=== PATIENT | female | born 1970 | race Caucasian/White ===

== ENCOUNTER 2017-06-22 01:29 | Inpatient (IN) | payer MEDICAID ==
[~2017-06-22] VITALS: Ht 157.5 cm; Wt 61.0 kg
[~2017-06-22 01:29] MED LIST: DENIES; PREN-15 PO
[2017-06-22] MEDS ORDERED: SOD CHLORIDE 0.9% 500 ML IV STA (03:10)
[2017-06-22] MEDS ORDERED: ONDANSETRON 4 MG INJ IV STA (03:10)
[2017-06-22] MEDS ORDERED: morphine 4 MG/ML VIAL IV STA (03:10)
--- NOTE | 2017-06-22 03:57 | RADRPT ---
PROCEDURE: Chest. CLINICAL INDICATION: Chest pain. TECHNIQUE: Single frontal view of the chest was obtained. COMPARISON: None. FINDINGS: The cardiac silhouette is within normal limits. The aortic arch is unremarkable. There is no focal consolidation, vascular congestion or pleural effusion. There is no pneumothorax. IMPRESSION: No evidence for active cardiopulmonary disease. .Orion Baltazar MD, MD Date Time Electronically viewed and signed by .Orion Baltazar MD, on 06/22/2017 03:57 .T/
[2017-06-22 04:51] LABS: ADD UMIC YES; UR ASCORBIC ACID NEGATIVE (NEGATIVE); UR BACTERIA FEW /HPF (NONE SEEN); UR BILIRUBIN (Dip) NEGATIVE (NEGATIVE); UR BLOOD (Dip) NEGATIVE (NEGATIVE); UR CLARITY CLOUDY (CLEAR); UR COLOR YELLOW (YELLOW); UR GLUCOSE (Dip) NEGATIVE (NEGATIVE); UR KETONES (Dip) TRACE mg/dL (NEGATIVE); UR LEUKOCYTE ESTERASE (Dip) NEGATIVE Leu/ul (NEGATIVE); UR NITRITE (Dip) NEGATIVE (NEGATIVE); UR RBC 2 /HPF (0-5); UR SPECIFIC GRAVITY (Dip) 1.021 (1.003-1.030); UR SQUAMOUS EPITHELIAL CELL MANY /HPF (FEW); UR TOTAL PROTEIN (Dip) 1+ mg/dl (NEGATIVE); UR UROBILINOGEN (Dip) NEGATIVE (NEGATIVE)
--- NOTE | 2017-06-22 04:53 | RADRPT ---
PROCEDURE: CT Abdomen and pelvis without contrast. CLINICAL INDICATION: Abdominal pain. TECHNIQUE: CT scan of the abdomen and pelvis was performed on a multi-detector high-resolution CT scanner. Contiguous axial images were obtained from the lung bases to the ischial tuberosities wit hout intravenous contrast. Coronal and sagittal reformatted images were also obtained. Images were reviewed on the PACS workstation. One or more of the following dose reduction techniques were used: - Automated exposure control. - Adjustment of the mA and/or kV according to patient size. - Use of iterative reconstruction technique. Exam CTD/vol = 8.09 mGy. Total exam DLP = 475.98 mGy-cm. COMPARISON: None. FINDINGS: Evaluation of the lung bases demonstrates mild bibasilar atelectasis. There is a moderate-sized hia low hernia. Abdomen: The liver is normal in size. There is no focal mass or dilatation of the biliary tree. T he gallbladder is not distended. A gallstone is identified. The spleen, pancreas and bilateral adren al glands are within normal limits. Bilateral kidneys are normal in size with no contour deforming mass identified. There is no radiopaque renal or ureteral calculus identified. There is no hydrone phrosis or hydroureter. There is no retroperitoneal adenopathy. The abdominal aorta is of normal c aliber. There is no abnormal bowel wall thickening or distension. There is no bowel obstruction or free air . A normal appendix is partially visualized. There is no diverticulosis or diverticulitis. There is no ascites. Pelvis: The bladder is unremarkable. The uterus and adnexa are within normal limits. There is no significant pelvic adenopathy or free fluid. Evaluation of the osseous structures demonstrates no suspicious lytic or blastic lesion. IMPRESSION: Moderate sized hiatal hernia. Cholelithiasis. Mild bibasilar atelectasis. Otherwise no acute abnormality identified within the abdomen and pelvis. .Orion Baltazar MD, MD Date Time Electronically viewed and signed by .Orion Baltazar MD, MD on 06/22/2017 04:53 .T/
[2017-06-22 04:54] LABS: BILIRUBIN,INDIRECT 0.9 mg/dl (0-1.1); BILIRUBIN,TOTAL 0.9 mg/dl (0.2-1.3); CALCIUM 9.4 mg/dl (8.4-10.2); CREATININE 0.6 mg/dl (0.44-1.00); POTASSIUM 3.4 mmol/L (3.5-5.1)
[2017-06-22 05:57] LABS: ABNORMAL IP MESSAGE 1; EOSINOPHILS % 0.9 % (0.0-7.0); HEMATOCRIT 17.5 % (37.0-47.0); LYMPHOCYTES % 28.4 % (15.0-51.0); MEAN CORPUSCULAR HEMOGLOBIN 16.1 pg (29.0-33.0); MEAN CORPUSCULAR HGB CONC 24.6 g/dl (32.0-37.0); MEAN CORPUSCULAR VOLUME 65.5 fl (82.0-101.0); MEAN PLATELET VOLUME 10.1 fl (7.4-10.4); MONOCYTE # 0.4 10^3/ul (0.3-0.9); MONOCYTES % 11.1 % (0.0-11.0); NEUTROPHILS % 59.3 % (39.0-77.0); PLATELET COUNT 211 10^3/UL (140-415); RED BLOOD COUNT 2.67 10^6/ul (4.20-5.40); WHITE BLOOD COUNT 3.4 10^3/ul (4.8-10.8)
--- NOTE | 2017-06-22 06:01 | ERD ---
ER Documentation Chief Complaint Date/Time DATE: 06/22/17 TIME: 06:00 Chief Complaint mid abd pain x 5 days, fever, vomiting HPI 47-year-old gentleman abdominal findings of fever and vomiting. Vomiting nonbilious. Pain is mild to moderate intensity. 2-3 episodes of vomiting per day. No fevers no chills. No other current complaints. ROS All systems reviewed and are negative except as per history of present illness. Medications Home Meds Reported Medications Vit/Fe Fumarate/Fa (Prenafirst Tablet) 1 Tab Tablet, PO DAILY 03/14/12 [Denies] No Conflict Check 04/23/10 Allergies Allergies: Coded Allergies: Penicillins (Verified Allergy, Mild, 03/14/12) PMhx/Soc History of Surgery: No Anesthesia Reaction: No Hx Neurological Disorder: No Hx Respiratory Disorders: No Hx Cardiac Disorders: No Hx Psychiatric Problems: No Hx Miscellaneous Medical Probl: Yes (ETOH,Anemia,Thrombocytopenia) Hx Alcohol Use: Yes (Quit) Hx Substance Use: No Hx Tobacco Use: No Smoking Status: Never smoker Physical Exam Vitals Vital Signs Date Time Temp Pulse Resp B/P Pulse Ox O2 Delivery O2 Flow Rate FiO2 06/22/17 01:35 99.1 90 20 107/55 100 Physical Exam Const: [] Head: Atraumatic Eyes: Normal Conjunctiva ENT: Normal External Ears, Nose and Mouth. Neck: Full range of motion..~ No meningismus. Resp: Clear to auscultation bilaterally Cardio: Regular rate and rhythm, no murmurs Abd: Soft, non tender, non distended. Normal bowel sounds Skin: No petechiae or rashes Back: No midline or flank tenderness Ext: No cyanosis, or edema Neur: Awake and alert Psych: Normal Mood and Affect Result Diagram: 06/22/17 0410 Results 24 hrs Laboratory Tests Test 06/22/17 04:10 06/22/17 05:30 Urine Color YELLOW Urine Clarity CLOUDY Urine pH 5.0 Urine Specific [place] 1.021 Urine Ketones TRACEmg/dL Urine Nitrite NEGATIVEmg/dL Urine Bilirubin NEGATIVEmg/dL Urine Urobilinogen NEGATIVEmg/dL Urine Leukocyte Esterase NEGATIVELeu/ul Urine Microscopic RBC 2/HPF Urine Microscopic WBC 2/HPF Urine Squamous Epithelial Cells MANY/HPF Urine Bacteria FEW/HPF Urine Hemoglobin NEGATIVEmg/dL Urine Glucose NEGATIVEmg/dL Urine Total Protein 1+mg/dl Sodium Level 143mmol/L Potassium Level 3.4mmol/L Chloride Level 97mmol/L Carbon Dioxide Level 29mmol/L Anion Gap 20 Blood Urea Nitrogen 9mg/dl Creatinine 0.60mg/dl Glucose Level 98mg/dl Calcium Level 9.4mg/dl Total Bilirubin 0.9mg/dl Direct Bilirubin 0.00mg/dl Indirect Bilirubin 0.9mg/dl Aspartate Amino Transf (AST/SGOT) 36IU/L Alanine Aminotransferase (ALT/SGPT) 47IU/L Alkaline Phosphatase 80IU/L Total Protein 8.0g/dl Albumin 4.0g/dl Globulin 4.00g/dl Albumin/Globulin Ratio 1.00 Lipase 45U/L White Blood Count Pending Red Blood Count Pending Hemoglobin Pending Hematocrit Pending Mean Corpuscular Volume Pending Mean Corpuscular Hemoglobin Pending Mean Corpuscular Hemoglobin Concent Pending Red Cell Distribution Width Pending Platelet Count Pending Mean Platelet Volume Pending Current Medications Medications (Trade) Dose Ordered Sig/Katelynn Route PRN Reason Start Time Stop Time Status Last Admin Dose Admin Sodium Chloride (NS) 500 ml @ 500 mls/hr Q1H STAT IV 06/22/17 03:10 06/22/17 04:09 DC 06/22/17 03:51 Morphine Sulfate (morphine) 4 mg ONCE STAT IV 06/22/17 03:10 06/22/17 03:12 DC 06/22/17 03:47 Ondansetron HCl (Zofran Inj) 4 mg ONCE STAT IV 06/22/17 03:10 06/22/17 03:12 DC 06/22/17 03:47 Procedures/MDM Medical decision-makin-year-old female comes in with complaints of vomiting. CT scan exam consistent with cholelithiasis. At this point clinically stable for outpatient management. Patient told to follow-up in 8 hours for serial abdominal exams which he agrees. Departure Diagnosis: Primary Impression: Abdominal pain Abdominal location: generalized Qualified Code: R10.84 - Generalized abdominal pain Condition: Stable DILLANCOLE VALELew Jun 22, 2017 06:01
[2017-06-22] MEDS ORDERED: HYDR-902 PO (06:02)
[2017-06-22] MEDS ORDERED: ONDA4TAB14 PO (06:02)
[2017-06-22 06:23] LABS: POSITIVE DIFF @See below
[2017-06-22 06:26] LABS: HEMOGLOBIN 4.3 g/dl (12.0-16.0)
[2017-06-22] MEDS ORDERED: SOD CHLORIDE 0.9% 250 ML IV ONE (06:35)
--- NOTE | 2017-06-22 07:16 | QN ---
Documentation Comment Patient was found to have a hemoglobin of 4.3. The patient will need transfusion of 4 units of packed red blood cells. Her anemia is likely from dysfunctional uterine bleeding. I spoke with Dr. Briggs from the panel team to admit the patient to a medical surgical bed. She is not I doubt or ectopic . Critical Care: Time: 35 minutes excluding all billable procedures. Treatments/Evaluations: Close monitoring and treatment of unstable vital signs, cardiorespiratory, and neurologic status, while maintaining tight balance of fluid, respiratory, and cardiac interventions. CARLA MOTT MD Jun 22, 2017 07:16
[2017-06-22] MEDS ORDERED: ONDANSETRON 4 MG INJ IV PRN ×2 (07:30→10:00)
[2017-06-22] MEDS ORDERED: ACETAMINOPHEN 325 MG TAB PO PRN ×2 (07:30→10:00)
[2017-06-22 08:45] VITALS: TEMP 98.3
[2017-06-22 08:49] LABS: ANISOCYTOSIS 3+ (0-0); BASOPHILS % (M) 1 % (0-2); EOSINOPHILS % (M) 3 % (0-7); GIANT THROMBO% (M) 4 % (0-0); HYPOCHROMASIA 2+ (0-0); METAMYELOCYTES %M 3 % (0-0); MICROCYTOSIS 3+ (0-0); MONOCYTES % (M) 1 % (0-11); MYELOCYTES % (M) 1 % (0.0-0.0); PLATELET ESTIMATE NORMAL; POIKILOCYTOSIS 1+ (0-0); POLYCHROMASIA 1+ (0-0); TEAR DROP CELLS 1+ (0-0)
[2017-06-22 10:00] VITALS: BP 96/52; PULSE 68; RESP 18
[2017-06-22] MEDS ORDERED: ACETAMINOPHEN 650 MG SUPP PR PRN (10:00)
[2017-06-22] MEDS ORDERED: DOCUSATE SODIUM 100 MG CAP PO PRN (10:00)
[2017-06-22] MEDS ORDERED: morphine 2 MG INJ IV PRN (10:00)
[2017-06-22] MEDS ORDERED: NACL 0.9% 3 ML SYG IV SCH (10:00)
--- NOTE | 2017-06-22 10:00 | HP ---
Date/Time of Note Date/Time of Note DATE: 06/22/17 TIME: 10:00 Assessment/Plan VTE Prophylaxis VTE Prophylaxis Intervention: SCD's Assessment/Plan Assessment/Plan 1. Acute on chronic anemia. Likely iron deficiency versus other. -Admit as inpatient, monitor H&H closely and transfuse as indicated. Of note, 4 units of PRBC has been ordered. -Obtain iron panel, ferritin, folate, vitamin B12 and treat accordingly. -Obtain tumor markers, TSH. -Consider hematology evaluation. -Obtain stool OB and will consider GI if indicated. -We will also obtain vaginal ultrasound to rule out any possible fibroids causing anemia. 2. Hypokalemia, mild. We will replete and monitor. 3. History of EtOH abuse. -We will also obtain liver panel. Plan: Patient will be started on a diet. Will consider hematology evaluation. Transfuse as indicated and monitor H&H closely. Follow-up with labs that have been ordered. Rest of the management depend on clinical course, and further studies. Approximately 60 minutes was spent on this history and physical. Case discussed with Dr. Interiano. HPI/ROS Admit Date/Time Admit Date/Time Hx of Present Illness This is a 47-year-old female with a past medical history of EtOH abuse who is a sober for the past month 1 month, chronic anemia with multiple blood transfusion in the past, epistaxis, who presented to the emergency room with complaints of generalized weakness, and malaise for the past few weeks. Patient does not have PCP. Patient denied any hematuria, hematemesis, hematochezia, melena or excessive vaginal bleed. Her LMP was 5 months ago. Initial workup showed a low hemoglobin 4.3, hematocrit 17.5, sub-normal MCV, MCH , WBC 3.4. UA negative for any RBC loss. 4 units packed red blood cells was ordered from emergency room and was admitted for further evaluation. ROS A 12 point review of system was assessed and is negative other than what is mentioned in HPI. PMH/Family/Social Past Medical History See HPI Past Surgical History See HPI Social History Former EtOH abuse, quit 1 month ago. Denied history of smoking or illicit drug use. Smoking Status: Never smoker Exam/Review of Systems Vital Signs Vitals Vital Signs Date Time Temp Pulse Resp B/P Pulse Ox O2 Delivery O2 Flow Rate FiO2 06/22/17 08:45 98.3 71 16 105/69 100 Room Air Exam Exam General: Well developed,adequately built, not in any acute distress . HEENT: Normocephalic, Atraumatic, No laceration or hematoma; Eyes: PEERL, Conjunctiva clear, mildly icteric sclera. Neck: Supple without any lymphadenopathy, nontender, no JVD, no carotid bruits, trachea midline, no thyromegaly Cardiac: S1, S2 auscultated, regular rhythm and rate, no mumurs or gallop Pulmonary: Normal respiratory effort. Chest clear to auscultation bilaterally, no adventitious breath sounds GI: Abdomen normal to inspection. Soft, non tender, non- distended, no masses, no rebound tenderness or guarding. Bowel sounds active on all four quadrants Genitourinary: Deferred Extremities: No cyanosis, clubbing, or edema. Pulses [2+] bilaterally. Full ROM on all four extremities. No focal weakness appreciated. Neurologic: Alert to person, place, time, and situation. Affect appropriate, intact sensation. Skin: Pale. Clean,dry, and intact. No ecchymosis, no rashes, or lesions Labs Result Diagram: 06/22/17 0530 06/22/17 0410 Medications Medications Current Medications Ondansetron HCl (Zofran Inj) 4 mg Q6H PRN IV NAUSEA AND/OR VOMITING; Start at 10:00; Status UNV Acetaminophen (Tylenol Tab) 650 mg Q6H PRN PO PAIN LEVEL 1-3 OR FEVER; Start at 10:00; Status UNV Acetaminophen (Tylenol Supp) 650 mg Q6H PRN [place] PAIN LEVEL 1-3 OR FEVER; Start 06/22/17 at 10:00; Status UNV Morphine Sulfate (morphine) 2 mg Q4H PRN IV SEVERE PAIN LEVEL 7-10; Start 06/22 at 10:00; Status UNV Docusate Sodium (Colace) 100 mg Q12H PRN PO CONSTIPATION; Start 06/22/17 at 10: 00; Status UNV Pantoprazole (Protonix Iv) 40 mg DAILY@06 IV ; Start 06/23/17 at 06:00; Status UNV IVIS LAKE NP Jun 22, 2017 10:00
[2017-06-22 11:19] LABS: IRON 21 ug/dl (35-150)
[2017-06-22 11:28] LABS: TOTAL IRON BINDING CAPACITY 507 ug/dl (241-421)
[2017-06-22 11:46] LABS: CANCER ANTIGEN 125 8.2 U/ml (0.0-35.0); CARCINOEMBRYONIC ANTIGEN 1.6 ng/ml (0.0-5.0)
[2017-06-22 11:50] LABS: CANCER ANTIGEN 19-9 3.3 U/ml (0.0-37.0)
[2017-06-22 11:57] LABS: FERRITIN 2.9 ng/ml (6.2-137.0)
[2017-06-22 12:00] VITALS: Ht 157.5 cm; Wt 61.0 kg
[2017-06-22 12:34] LABS: FOLATE > 20.0 ng/ml (2.8-20.0)
--- NOTE | 2017-06-22 12:59 | CONS ---
Date/Time of Note Date/Time of Note DATE: 06/22/17 TIME: 12:58 Consultation Date/Type/Reason Admit Date/Time Date of Consultation: Jun 22, 2017 Type of Consultation: hemeonc Reason for Consultation anemia Referring Provider: IVIS LAKE NP Social History Smoking Status: Never smoker Exam/Review of Systems Vital Signs Vitals Vital Signs Date Time Temp Pulse Resp B/P Pulse Ox O2 Delivery O2 Flow Rate FiO2 06/22/17 08:45 98.3 71 16 105/69 100 Room Air Results Result Diagram: 06/22/17 0530 06/22/17 0410 Results 24 hrs Laboratory Tests Test 06/22/17 04:10 06/22/17 05:30 Urine Color YELLOW Urine Clarity CLOUDY A Urine pH 5.0 Urine Specific [place] 1.021 Urine Ketones TRACE A Urine Nitrite NEGATIVE Urine Bilirubin NEGATIVE Urine Urobilinogen NEGATIVE Urine Leukocyte Esterase NEGATIVE Urine Microscopic RBC 2 Urine Microscopic WBC 2 Urine Squamous Epithelial Cells MANY A Urine Bacteria FEW A Urine Hemoglobin NEGATIVE Urine Glucose NEGATIVE Urine Total Protein 1+ H Sodium Level 143 Potassium Level 3.4 L Chloride Level 97 Carbon Dioxide Level 29 Anion Gap 20 H Blood Urea Nitrogen 9 Creatinine 0.60 Glucose Level 98 Calcium Level 9.4 Iron Level 21 L Total Iron Binding Capacity 507 H Percent Iron Saturation 4 L Ferritin 2.9 L Total Bilirubin 0.9 Direct Bilirubin 0.00 Indirect Bilirubin 0.9 Aspartate Amino Transf (AST/SGOT) 36 Alanine Aminotransferase (ALT/SGPT) 47 Alkaline Phosphatase 80 Lactate Dehydrogenase 515 Total Protein 8.0 Albumin 4.0 Globulin 4.00 H Albumin/Globulin Ratio 1.00 Lipase 45 Alpha Fetoprotein 2.03 Carcinoembryonic Antigen 1.6 CA 19-9 Antigen 3.3 CA 125 Antigen 8.2 Vitamin B12 Level 643 Folate > 20.0 H White Blood Count 3.4 L Red Blood Count 2.67 L Hemoglobin 4.3 *L Hematocrit 17.5 L Mean Corpuscular Volume 65.5 L Mean Corpuscular Hemoglobin 16.1 L Mean Corpuscular Hemoglobin Concent 24.6 L Red Cell Distribution Width 22.0 H Platelet Count 211 Mean Platelet Volume 10.1 Neutrophils % 59.3 Segmented Neutrophils % (Manual) 68 Band Neutrophils % (Manual) 1 Lymphocytes % 28.4 Lymphocytes % (Manual) 22 Monocytes % 11.1 H Monocytes % (Manual) 1 Eosinophils % 0.9 Eosinophils % (Manual) 3 Basophils % 0.0 Basophils % (Manual) 1 Metamyelocytes % (manual) 3 H Myelocytes % (Manual) 1 H Nucleated Red Blood Cells % 0.0 Neutrophils # (Manual) 2 Band Neutrophils # 0.0 Absolute Lymphocytes (Manual) 0.7 L Lymphocytes # 1.0 Monocytes # 0.4 Absolute Monocytes (Manual) 0.0 L Eosinophils # 0.0 Basophils # 0.0 Basophils # (Manual) 0.0 Metamyelocytes # 0.1 H Myelocytes # 0.0 Nucleated Red Blood Cells # 0.0 Thrombocytosis 4 H Platelet Estimate NORMAL Polychromasia 1+ Hypochromasia 2+ Poikilocytosis 1+ Anisocytosis 3+ Microcytosis 3+ Tear Drop Cells 1+ Medications Medications Current Medications Ondansetron HCl (Zofran Inj) 4 mg Q6H PRN IV NAUSEA AND/OR VOMITING; Start at 10:00 Acetaminophen (Tylenol Tab) 650 mg Q6H PRN PO PAIN LEVEL 1-3 OR FEVER; Start at 10:00 Acetaminophen (Tylenol Supp) 650 mg Q6H PRN [place] PAIN LEVEL 1-3 OR FEVER; Start 06/22/17 at 10:00 Morphine Sulfate (morphine) 2 mg Q4H PRN IV SEVERE PAIN LEVEL 7-10; Start 06/22 at 10:00 Docusate Sodium (Colace) 100 mg Q12H PRN PO CONSTIPATION; Start 06/22/17 at 10: 00 Pantoprazole (Protonix Iv) 40 mg DAILY@06 IV ; Start 06/23/17 at 06:00 BERNADETTE HAWKINS MD Jun 22, 2017 12:58
[2017-06-22] MEDS ORDERED: BARIUM SULF 2% 450 ML BTL (BERRY SMOOTHIE) PO ONE (13:30)
[2017-06-22] MEDS ORDERED: POTASSIUM CHLORIDE (SR) 20 MEQ TAB PO STA (13:47)
[2017-06-22] MEDS: SOD FERRIC GLUC COMPLX 125 MG in SOD CHLORIDE 0.9% 100 ML IVPB SCH (15:29)
[2017-06-22 15:32] VITALS: BP 107/64; RESP 16
[2017-06-22 15:35] LABS: RETICULOCYTE COUNT % 0.8 % (0.5-1.5)
--- NOTE | 2017-06-22 15:46 | RADRPT ---
PROCEDURE: US Pelvis. CLINICAL INDICATION: Fibroids. TECHNIQUE: The pelvis was evaluated with transabdominal and transvaginal sonography in the axial a nd sagittal planes. COMPARISON: No prior study is available for comparison. FINDINGS: Uterus: 8.0 x 3.8 x 5.0 cm. Endometrium: Heterogeneous measuring 14.7 mm. Right ovary: Not visualized. Left ovary: 2.4 x 1.6 x 1.9 cm. Uterine masses: There are multiple hypoechoic masses in the uterus consistent with fibroids with the largest measuring 1.7 x 1.3 x 1.4 cm. A small Nabothian cyst is present in the cervix. Ovarian masses: The right ovary is not visualized. The left ovary has a benign 1.7 cm cyst with no internal echoes or septations. Color Doppler and pulsed Doppler sonography demonstrate normal flow t o the left ovary. Other pelvic masses: None. Free fluid: None. IMPRESSION: 1. Multiple small fibroids in the uterus. 2. Benign Nabothian cyst of the cervix. 3. Right ovary not visualized. 4. A 91.7 cm cyst in the left ovary. No further evaluation is required. 5. Heterogeneous endometrium. Follow-up ultrasound in 6 weeks is advised. 6. Otherwise unremarkable study. RPTAT: QQ .Negrito Gardiner MD, MD Date Time Electronically viewed and signed by .Negrito Gardiner MD, on 06/22/2017 15:46 .R/
[2017-06-22 15:48] LABS: HEMATOCRIT 26.4 % (37.0-47.0); HEMOGLOBIN 7.6 g/dl (12.0-16.0)
[2017-06-22 15:53] LABS: LACTATE DEHYDROGENASE 352 IU/L (313-618); URIC ACID 5.4 mg/dl (3.1-7.9)
[2017-06-22 16:56] LABS: CARCINOEMBRYONIC ANTIGEN 1.5 ng/ml (0.0-5.0)
[2017-06-22 20:16] VITALS: BP 101/56; RESP 18
[2017-06-23] VITALS (10 sets, daily range): BP systolic 90–131; BP diastolic 54–80; PULSE 50–59; RESP 14–18
[2017-06-23] MEDS ORDERED: PANTOPRAZOLE 40 MG INJ IV SCH (06:00)
[2017-06-23 06:13] LABS: ABNORMAL IP MESSAGE 1; BASOPHILS % 0.9 % (0.0-2.0); EOSINOPHILS # 0.1 10^3/ul (0.0-0.5); EOSINOPHILS % 3.3 % (0.0-7.0); HEMATOCRIT 33.2 % (37.0-47.0); HEMOGLOBIN 9.9 g/dl (12.0-16.0); LYMPHOCYTES # 1.2 10^3/ul (0.8-2.9); LYMPHOCYTES % 27.5 % (15.0-51.0); MEAN CORPUSCULAR HGB CONC 29.8 g/dl (32.0-37.0); MEAN CORPUSCULAR VOLUME 73.9 fl (82.0-101.0); MEAN PLATELET VOLUME 10.9 fl (7.4-10.4); MONOCYTE # 0.5 10^3/ul (0.3-0.9); NEUTROPHILS % 57.1 % (39.0-77.0); NUCLEATED RED BLOOD CELLS% 0.5 /100WBC (0.0-0.0); PLATELET COUNT 235 10^3/UL (140-415); RED BLOOD COUNT 4.49 10^6/ul (4.20-5.40); RED CELL DISTRIBUTION WIDTH 24.3 % (11.5-14.5); WHITE BLOOD COUNT 4.3 10^3/ul (4.8-10.8)
[2017-06-23 06:18] LABS: POSITIVE DIFF @See below
[2017-06-23 06:42] LABS: BILIRUBIN,INDIRECT 1.2 mg/dl (0-1.1); BILIRUBIN,TOTAL 1.2 mg/dl (0.2-1.3); CALCIUM 8.8 mg/dl (8.4-10.2); CREATININE 0.7 mg/dl (0.44-1.00); MAGNESIUM 1.9 mg/dl (1.7-2.5); PHOSPHORUS 3.6 mg/dl (2.5-4.9); POTASSIUM 4.2 mmol/L (3.5-5.1); TOTAL PROTEIN 6.5 g/dl (6.1-8.1)
[2017-06-23 06:43] LABS: ALBUMIN 3.4 g/dl (3.3-4.9); ALBUMIN/GLOBULIN RATIO 1.09; CHOL/HDL RATIO 2.5 RATIO
[2017-06-23 09:03] LABS: THYROID STIMULATING HORMONE 3.55 MIU/L (0.465-4.680)
--- NOTE | 2017-06-23 09:15 | PDOCDIS ---
Discharge Instructions CONDITION Patient Condition: Stable HOME CARE INSTRUCTIONS: Special Diet: Regular Diet FOLLOW UP/APPOINTMENTS Follow-up Plan 1.Follow up with primary care physician in 1 week-Needs Hematology outpatient follow-up If you don't have one please let someone know, we can give you resources that may help you pick one. You may also call your insurance company to assign one to you. Review your medication list with your nurse before leaving and if you need new prescriptions please let your nurse know. I may have made changes to your home medications or given you new prescriptions, please let your primary doctor know as well. Stay compliant with your medications and report any side effects to your PCP or pharmacist. Return to the ER if you have any concerns and cannot reach your doctors or call your insurance company, they usually have a nurse that can help you. 2. Call 911 or go to the nearest emergency room if experiencing loss of consciousness, dizziness, chest pain, shortness of breath, vomiting/abdominal pain, speech difficulties, motor weakness or any unusual symptoms. IVIS LAKE NP Jun 23, 2017 09:15
[2017-06-23] MEDS ORDERED: DOCU-216 PO (09:18)
[2017-06-23] MEDS ORDERED: FER325 PO (09:18)
[2017-06-23] MEDS ORDERED: HYDROmorphONE 1 MG/ML SYG IV PRN (09:30)
--- NOTE | 2017-06-23 09:43 | PN ---
Date/Time of Note Date/Time of Note DATE: 06/23/17 TIME: 09:33 Assessment/Plan VTE Prophylaxis VTE Prophylaxis Intervention: SCD's Lines/Catheters IV [facility]ter Type [facility] Saline Lock Urinary Cath still in place: No Assessment/Plan Chief Complaint/Hosp Course 1. Acute on chronic iron deficiency anemia requiring multiple blood tx. HH improved -Heme eval appreciated and patient on IV iron replacement. -Pending stool OB 2. Intractable nausea/vomiting/abdominal pain. Ct abd/pelvis negative for acute intraabdominal pathology. -Keep NPO -Around the clock Reglan, Zofran and PRN Pain control-GI consult for possible EGD eval. 3. History of EtOH abuse. Plan: F/u with GI recs. Case discussed with Dr. Interiano. Problems: Subjective 24 Hr Interval Summary Free Text/Dictation Patient with intractable nonbilious, nonbloody vomiting with excruciating lower abdominal cramps. No fever or diarrhea. No bleeding episodes. Exam/Review of Systems Vital Signs Vitals Vital Signs Date Time Temp Pulse Resp B/P Pulse Ox O2 Delivery O2 Flow Rate FiO2 06/23/17 07:46 98.7 65 16 131/80 98 06/22/17 15:32 Room Air Intake and Output 06/22/17 06/22/17 06/23/17 15:00 23:00 07:00 Intake Total 350 ml 1400 ml 700 ml Balance 350 ml 1400 ml 700 ml Exam General: Well developed,adequately built, not in any acute distress . HEENT: Normocephalic, Atraumatic, No laceration or hematoma; Eyes: PEERL, Conjunctiva clear, mildly icteric sclera. Neck: Supple without any lymphadenopathy, nontender, no JVD, no carotid bruits, trachea midline, no thyromegaly Cardiac: S1, S2 auscultated, regular rhythm and rate, no mumurs or gallop Pulmonary: Normal respiratory effort. Chest clear to auscultation bilaterally, no adventitious breath sounds GI: Abdomen normal to inspection. Soft, non tender, non- distended, no masses, no rebound tenderness or guarding. Bowel sounds active on all four quadrants Genitourinary: Deferred Extremities: No cyanosis, clubbing, or edema. Pulses [2+] bilaterally. Full ROM on all four extremities. No focal weakness appreciated. Neurologic: Alert to person, place, time, and situation. Affect appropriate, intact sensation. Skin: Pale. Clean,dry, and intact. No ecchymosis, no rashes, or lesions Results Result Diagram: 06/23/1752006/23/17 0521 Results 24 hrs Laboratory Tests Test 06/22/17 15:14 06/23/17 05:21 06/23/17 05:25 Hemoglobin 7.6 #L 9.9 #L Hematocrit 26.4 #L 33.2 #L Erythrocyte Sedimentation Rate 14 Absolute Reticulocyte Count 0.030 Percent Reticulocyte Count 0.8 Uric Acid 5.4 Lactate Dehydrogenase 352 Carcinoembryonic Antigen 1.5 Vitamin B12 Level 800 Thyroid Stimulating Hormone (TSH) 4.370 Pending HIV (1&2) Antibody NEGATIVE White Blood Count 4.3 #L Red Blood Count 4.49 # Mean Corpuscular Volume 73.9 L Mean Corpuscular Hemoglobin 22.0 #L Mean Corpuscular Hemoglobin Concent 29.8 #L Red Cell Distribution Width 24.3 H Platelet Count 235 Mean Platelet Volume 10.9 H Neutrophils % 57.1 Lymphocytes % 27.5 Monocytes % 11.0 Eosinophils % 3.3 Basophils % 0.9 Nucleated Red Blood Cells % 0.5 H Neutrophils # (Manual) 2 Lymphocytes # 1.2 Monocytes # 0.5 Eosinophils # 0.1 Basophils # 0.0 Nucleated Red Blood Cells # 0.0 Sodium Level 138 Potassium Level 4.2 Chloride Level 102 Carbon Dioxide Level 30 Anion Gap 10 # Blood Urea Nitrogen 6 L Creatinine 0.70 Glucose Level 92 Hemoglobin A1c 5.2 Calcium Level 8.8 Phosphorus Level 3.6 Magnesium Level 1.9 Total Bilirubin 1.2 Direct Bilirubin 0.00 Indirect Bilirubin 1.2 H Aspartate Amino Transf (AST/SGOT) 45 Alanine Aminotransferase (ALT/SGPT) 50 Alkaline Phosphatase 72 Total Protein 6.5 # Albumin 3.4 Globulin 3.10 Albumin/Globulin Ratio 1.09 Triglycerides Level 51 Cholesterol Level 86 L LDL Cholesterol, Calculated 42 HDL Cholesterol 34 Cholesterol/HDL Ratio 2.5 Lab Scanned Report BLOOD TRANSFUSION Medications Medications Current Medications Ondansetron HCl (Zofran Inj) 4 mg Q6H PRN IV NAUSEA AND/OR VOMITING Last administered on 06/23/17t 09:09; Admin Dose 4 MG; Start 06/22/17 at 10:00 Acetaminophen (Tylenol Tab) 650 mg Q6H PRN PO PAIN LEVEL 1-3 OR FEVER; Start at 10:00 Acetaminophen (Tylenol Supp) 650 mg Q6H PRN [place] PAIN LEVEL 1-3 OR FEVER; Start 06/22/17 at 10:00 Morphine Sulfate (morphine) 2 mg Q4H PRN IV SEVERE PAIN LEVEL 7-10 Last administered on 06/23/17 07:48; Admin Dose 2 MG; Start 06/22/17 at 10:00 Docusate Sodium 100 mg 100 mg Q12H PRN PO CONSTIPATION; Start 06/22/17 at 10:00 Ferric Sodium Gluconate Complex/ Sodium Chloride (Ferrlecit/NS) 110 ml @ 110 mls/hr Q24H IVPB Last administered on 06/22/17 15:29; Admin Dose 110 MLS/HR; Start 06/22/17 at 15:00; Stop 06/26/17 at 15:59 Pantoprazole (Protonix Tab) 40 mg DAILY@06 PO ; Start 06/24/17 at 06:00 IVIS LAKE NP Jun 23, 2017 09:43
[2017-06-23] MEDS: METOCLOPRAMIDE 10 MG INJ IV SCH ×4 (09:51→21:08)
[2017-06-23] MEDS ORDERED: IOHEXOL 300MG/ML 150 ML BTL ONE (10:56)
[2017-06-23] MEDS ORDERED: SOD CHLORIDE 0.9% 100 ML ONE (10:56)
[2017-06-23] MEDS: SOD CHLORIDE 0.9% 1,000 ML IV SCH (12:33)
[2017-06-23] MEDS: SOD FERRIC GLUC COMPLX 125 MG in SOD CHLORIDE 0.9% 100 ML IVPB SCH (14:32)
--- NOTE | 2017-06-23 14:39 | RADRPT ---
PROCEDURE: CT Abdomen and Pelvis with contrast. CLINICAL INDICATION: Pain. TECHNIQUE: Multiple contiguous axial CT images of the abdomen and pelvis were obtained following t he administration of 100 cc of Omnipaque-300. Oral contrast was also administered. Coronal and sagit low reconstructions were also performed. CTDIvol (mGy): 9.92; Total Exam DLP (mGy-cm): 527.70. One or more of the following dose reduction techniques were utilized: - Automated exposure control. - Adjustment of the mA and/or kV according to patient size. - Use of iterative reconstruction technique. COMPARISON: Pelvic ultrasound 06/22/2017. CT abdomen/pelvis 06/22/2017. FINDINGS: Limited imaging of the lower thorax is unremarkable. The liver and spleen are homogeneous in enhancement. The hepatic and portal veins are patent. Chol elithiasis is present. The pancreas and adrenal glands are unremarkable. The kidneys are symmetric in size and enhancement. There is no hydronephrosis or abnormal perinephr ic inflammation. There are no ureteral stones. The abdominal aorta is normal in caliber. There is no periaortic / retroperitoneal lymphadenopathy. A moderate large hiatal hernia is present. Prominent perigastric lymph nodes are present and unchan ged. The small and large intestines are unremarkable. The appendix is normal. There are no focal i nflammatory changes of the mesentery. There is no mesenteric lymphadenopathy. There is no ascites. The bladder is collapsed. The uterus is anteverted. Low attenuation within the central portion of t he uterus is present which may reflect physiologic changes of the endometrium when correlated with r ecent pelvic ultrasound. Endometrial myometrial junction is maintained. There is no free pelvic fl uid. There is no pelvic sidewall or inguinal lymphadenopathy. Skeletal structures are unremarkable. Body wall soft tissues are unremarkable. IMPRESSION: No evidence of abdominopelvic mass, lymphadenopathy or acute inflammatory pathology. Cholelithiasis. Moderate large hiatal hernia with prominent perigastric lymph nodes, unchanged. Low attenuation of the central portion of the uterus which likely reflects physiologic changes of th e endometrium when correlated with recent pelvic ultrasound. Refer to pelvic ultrasound for followup recommendations. RPTAT: HLST .Dianna Samaniego MD, Date Time Electronically viewed and signed by .Dianna Samaniego MD, MD on 06/23/2017 14:38 .T/
[2017-06-23 16:35] LABS: HEMATOCRIT 32.4 % (37.0-47.0); HEMOGLOBIN 9.4 g/dl (12.0-16.0)
[2017-06-23] MEDS ORDERED: FENTAnyl 50 MCG/ML VIAL ONE (18:44)
[2017-06-23] MEDS ORDERED: MIDAZOLAM 1 MG/ML 2 ML INJ ONE (18:44)
[2017-06-23] MEDS ORDERED: PROPOFOL 20 ML ONE (18:44)
--- NOTE | 2017-06-23 19:06 | CONS ---
Date/Time of Note Date/Time of Note DATE: 06/23/17 TIME: 18:59 Assessment/Plan Assessment/Plan Additional Assessment/Plan Assessment: * Severe anemia probably multifactorial * Rule out GI bleeding * Persistent nausea and vomiting * Rule out PUD/GERD versus others * History of alcohol abuse * Probable chronic liver disease * Abstinence 1 month, not corroborated Plan: * Evaluate upper GI tract with endoscopy. The patient has been informed of the risks, benefits and alternatives. She is agreeable to proceed. Consultation Date/Type/Reason Admit Date/Time Date of Consultation: Jun 23, 2017 Type of Consultation: GI Reason for Consultation Nausea and vomiting Anemia Hx of Present Illness 47-year-old female with history of chronic alcohol abuse, the patient claims to be sober for the last month. She is hospitalized with a hemoglobin of 4 g range. The patient is a poor historian denies hematemesis, melena or hematochezia or overt bleeding in any form. She does complain of epigastric abdominal pain and persistent nausea and vomiting which has been nonbloody. The patient has evidence of iron deficiency suggestive blood loss. Patient will be evaluated endoscopically to address her persistent nausea and vomiting as well as severe anemia. Patient has never had endoscopy or colonoscopy. Constitutional: no complaints, No chills, No diaphoresis, No disoriented, No febrile, No other, No poor po, No requiring IVF, No requiring O2 Eyes: no complaints, No discharge, No other, No pain, No redness, No visual change ENT: no complaints, No bleeding, No congestion, No discharge, No dysphagia, No other, No pain, No sore throat Respiratory: no complaints, No cough, No other, No pain, No pleuritic pain, No shortness of breath, No sputum, No wheezing Cardiovascular: no complaints, No chest pain, No edema, No lightheadedness, No orthopenea, No other, No palpitations, No paroxysmal nocturnal dyspnea Gastrointestinal: pain, No blood, No constipation, No decreased appetite, No diarrhea, No nausea, No vomiting Genitourinary: no complaints, No bleeding, No discharge, No dysuria, No flank pain, No hematuria, No other Musculoskeletal: no complaints, No back pain, No bone/joint pain, No neck pain, No other, No restricted range of motion, No swelling Skin: no complaints, No bruising, No erythema, No laceration, No other, No pruritis, No rash, No skin lesions Neurologic: no complaints, No confusion, No dizziness, No focal-weakness, No headache, No other, No seizure, No syncope Endocrine: no complaints, No dry skin, No other, No polydypsia, No polyuria, No temp intolerance Lymphatic: no complaints, No adenopathy, No lymphadema, No other, No tender nodes Psychological: anxiety, nl mood/affect, no complaints, No confusion, No depression, No other, No suicidal Immunologic: no complaints, No immunodeficiency, No other, No pruritis, No rhinitis, No urticaria Past Medical History History of alcohol abuse Probable chronic liver disease Past Surgical History Past Surgical Hx: no surgical history Family History Significant Family History: no pertinent family hx Social History Alcohol Use: sober (1 month, not corroborated) Smoking Status: Never smoker Drug Use: none Exam/Review of Systems Vital Signs Vitals Vital Signs Date Time Temp Pulse Resp B/P Pulse Ox O2 Delivery O2 Flow Rate FiO2 06/23/17 17:18 98.2 56 14 117/55 98 Room Air Intake and Output 06/22/17 06/22/17 06/23/17 15:00 23:00 07:00 Intake Total 350 ml 1400 ml 700 ml Balance 350 ml 1400 ml 700 ml Exam PHYSICAL EXAMINATION: GENERAL: Well developed, well nourished, alert & oriented x 3, in no acute distress SKIN: No lesions, positive stigmata chronic liver disease, no evidence of bleeding diathesis LYMPHATIC: No palpable lymphadenopathy. HEAD: Normocephalic, atraumatic, no tenderness. EYES: Pupils equal reactive to light and accommodation, full extraocular movements, sclera clear, non-icteric, no discharge. EARS/NOSE AND THROAT: Ears normal, nose normal, oropharynx normal, oral membranes well hydrated without lesions. NECK: Supple, no masses, thyroid normal, JVP within normal limits, carotids normal without bruits. CHEST: Inspection within normal limits, breasts grossly normal. CARDIOVASCULAR: Heart: Regular rate and rhythm, no murmurs, gallops or rubs. Peripheral pulses present within normal limits, no cyanosis, clubbing or edemas. No pulsatile abdominal mass RESPIRATORY: Lungs clear to auscultation and percussion, no wheezing, no rubs GASTROINTESTINAL AND LIVER: Abdomen: Soft, moderate epigastric tenderness, non- distended, no hernias, no masses, no organomegaly, no ascites, no guarding, no rebound tenderness, normoactive bowel sounds. Rectal: Deferred to colonoscopy. GENITOURINARY: [ (FEMALE) Female genitalia within normal limits. MUSCULO-SKELETAL: Gait and station within normal limits, range of motion adequate. NEUROLOGIC: Cranial nerves II-XII intact, Motor within normal limits, Sensory within normal limits. Reflexes within normal limits. PSYCHIATRIC: Alert & oriented x 3, mood/affect/judgement adequate Results Result Diagram: 06/23/17 1614 06/23/17 0521 Results 24 hrs Laboratory Tests Test 06/23/17 05:21 06/23/17 05:25 06/23/17 16:14 White Blood Count 4.3 #L Red Blood Count 4.49 # Hemoglobin 9.9 #L 9.4 L Hematocrit 33.2 #L 32.4 L Mean Corpuscular Volume 73.9 L Mean Corpuscular Hemoglobin 22.0 #L Mean Corpuscular Hemoglobin Concent 29.8 #L Red Cell Distribution Width 24.3 H Platelet Count 235 Mean Platelet Volume 10.9 H Neutrophils % 57.1 Lymphocytes % 27.5 Monocytes % 11.0 Eosinophils % 3.3 Basophils % 0.9 Nucleated Red Blood Cells % 0.5 H Neutrophils # (Manual) 2 Lymphocytes # 1.2 Monocytes # 0.5 Eosinophils # 0.1 Basophils # 0.0 Nucleated Red Blood Cells # 0.0 Sodium Level 138 Potassium Level 4.2 Chloride Level 102 Carbon Dioxide Level 30 Anion Gap 10 # Blood Urea Nitrogen 6 L Creatinine 0.70 Glucose Level 92 Hemoglobin A1c 5.2 Calcium Level 8.8 Phosphorus Level 3.6 Magnesium Level 1.9 Total Bilirubin 1.2 Direct Bilirubin 0.00 Indirect Bilirubin 1.2 H Aspartate Amino Transf (AST/SGOT) 45 Alanine Aminotransferase (ALT/SGPT) 50 Alkaline Phosphatase 72 Total Protein 6.5 # Albumin 3.4 Globulin 3.10 Albumin/Globulin Ratio 1.09 Triglycerides Level 51 Cholesterol Level 86 L LDL Cholesterol, Calculated 42 HDL Cholesterol 34 Cholesterol/HDL Ratio 2.5 Thyroid Stimulating Hormone (TSH) 3.550 Lab Scanned Report BLOOD TRANSFUSION Medications Medications Current Medications Ondansetron HCl (Zofran Inj) 4 mg Q6H PRN IV NAUSEA AND/OR VOMITING Last administered on 06/23/17 09:09; Admin Dose 4 MG; Start 06/22/17 at 10:00 Acetaminophen (Tylenol Tab) 650 mg Q6H PRN PO PAIN LEVEL 1-3 OR FEVER; Start at 10:00 Acetaminophen (Tylenol Supp) 650 mg Q6H PRN [place] PAIN LEVEL 1-3 OR FEVER; Start 06/22/17 at 10:00 Docusate Sodium 100 mg 100 mg Q12H PRN PO CONSTIPATION; Start 06/22/17 at 10:00 Ferric Sodium Gluconate Complex/ Sodium Chloride (Ferrlecit/NS) 110 ml @ 110 mls/hr Q24H IVPB Last administered on 06/23/17 14:32; Admin Dose 110 MLS/HR; Start 06/22/17 at 15:00; Stop 06/26/17 at 15:59 Metoclopramide HCl (Reglan) 10 mg Q6 IV Last administered on 06/23/17 14:32; Admin Dose 10 MG; Start 06/23/17 at 10:00 Hydromorphone HCl (Dilaudid) 1 mg Q4H PRN IV PAIN Last administered on 09:52; Admin Dose 1 MG; Start 06/23/17 at 09:30 Pantoprazole 40 mg 40 mg DAILY@06 IV ; Start 06/24/17 at 06:00 Sodium Chloride (NS) 1,000 ml @ 80 mls/hr [id number] IV Last administered on 06/23 12:33; Admin Dose 80 MLS/HR; Start 06/23/17 at 12:30 MEL MARTINEZ MD Jun 23, 2017 19:06
--- NOTE | 2017-06-23 19:11 | OPPN ---
Date/Time of Note Date/Time of Note DATE: 06/23/17 TIME: 19:07 Proc Note GI Free Text/Dictation Preoperative Diagnosis: Anemia/nausea and vomiting Postoperative Diagnosis: Grade I/IV esophageal varices with no stigmata. Severe distal esophagitis Small hiatal hernia Mild esophageal stricture dilated with scope 5 mm antral gastric ulceration, benign endoscopic appearance. Rule out H. pylori infection. Biopsies obtained Plan: Protonix 40 mg twice daily Review pathology for H. pylori identified eradication therapy. Procedure Performed: EGD with biopsies Surgeon: Mel Bee MD Aviation Electronic Warfare Operator: None Second Electronic Page Makeup System Operator: None Anesthesia/Sedation: MAC by anesthesiologist Tourniquet Time: NA Estimated Blood Loss: 0 Transfusion Required: No Specimens: Gastric antrum Grafts/Implants: None Tubes/Drains: NA Complications: None Pt. Condition Post Procedure: Stable Disposition: PACU After informed consent, with the patient/relatives understanding the procedure, its indications, potential risks and complications, including but not limited to : allergic reaction, bleeding, perforation or infection, and after all pertinent questions were answered to the patients satisfaction, the patient/ relatives signed witnessed informed consent. Following this, premedication was administered slowly IV push under careful cardiovascular and respiratory monitoring with pulse oximetry, automatic blood pressure, and hall monitor. Once the sedative effect was achieved the patient was place in the left lateral decubitus, the panendoscope was introduced and advanced under visual control. Careful examination of the upper gastrointestinal tract, both on insertion as well as withdrawal of the instrument disclosing the following findings: ESOPHAGUS: the mucosa of the entire esophagus was carefully examined and showed the following findings: There is evidence of esophageal varices graded I/IV, no stigmata recent bleeding. There is significant erythema, edema and erosion of the mucosa of the distal esophagus the lumen is slightly narrowed approximately 10 mm, it was dilated with the endoscope without difficulty. Otherwise the mucosa appears within normal limits. There is no evidence of neoplasm, or stricture. Small hiatal Hernia identified. STOMACH: Upon entrance to the stomach air was insufflated, the gastric babb distended normally. The mucosa of the fundus, body and antrum of the stomach was carefully examined both head-on and on retroflexion, and showed the following findings: There is significant erythema and edema of the mucosa of the antrum. A 5 mm gastric ulceration a benign endoscopic appearance and no stigmata was present. Biopsies were obtained to rule out H. pylori infection. Otherwise the mucosa appears within normal limits with no abnormalities. There is no evidence of neoplasm. PYLORUS: The pylorus was carefully examined and showed the following findings: the pylorus appears patent and within normal limits, with no evidence of gastric outlet obstruction. DUODENUM: The duodenal mucosa was carefully examined in the duodenal bulb as well as the second portion of the duodenum and showed the following findings: There is significant erythema and edema of the mucosa of the duodenal bulb. Otherwise the mucosa appears unremarkable with no evidence of ulcer or neoplasm. Procedure date: Jun 23, 2017 MEL BEE MD Jun 23, 2017 19:11
--- NOTE | 2017-06-23 19:14 | HPN ---
Date/Time of Note Date/Time of Note DATE: 06/23/17 TIME: 19:14 Interval H&P Admission Note Pt. seen H&P reviewed: No system changes MEL MARTINEZ MD Jun 23, 2017 19:14
[2017-06-23] MEDS: PANTOPRAZOLE 40 MG INJ IV SCH (21:07)
--- NOTE | 2017-06-23 23:25 | CONS ---
Date/Time of Note Date/Time of Note DATE: 06/23/17 TIME: 23:24 Consultation Date/Type/Reason Admit Date/Time Jun 22, 2017 at 07:14 Initial Consult Date 06/23/17 Type of Consultation: [facility] Referring Provider: IVIS LAKE NP Exam/Review of Systems Vital Signs Vitals Vital Signs Date Time Temp Pulse Resp B/P Pulse Ox O2 Delivery O2 Flow Rate FiO2 06/23/17 19:50 97.9 74 16 112/63 98 06/23/17 19:28 Room Air 06/23/17 18:56 5 Intake and Output 06/22/17 06/22/17 06/23/17 15:00 23:00 07:00 Intake Total 350 ml 1400 ml 700 ml Balance 350 ml 1400 ml 700 ml Results Result Diagram: 06/23/17 1614 06/23/17 0521 Results 24 hrs Laboratory Tests Test 06/23/17 02:00 06/23/17 05:21 06/23/17 05:25 06/23/17 16:14 Stool Occult Blood NEGATIVE White Blood Count 4.3 #L Red Blood Count 4.49 # Hemoglobin 9.9 #L 9.4 L Hematocrit 33.2 #L 32.4 L Mean Corpuscular Volume 73.9 L Mean Corpuscular Hemoglobin 22.0 #L Mean Corpuscular Hemoglobin Concent 29.8 #L Red Cell Distribution Width 24.3 H Platelet Count 235 Mean Platelet Volume 10.9 H Neutrophils % 57.1 Lymphocytes % 27.5 Monocytes % 11.0 Eosinophils % 3.3 Basophils % 0.9 Nucleated Red Blood Cells % 0.5 H Neutrophils # (Manual) 2 Lymphocytes # 1.2 Monocytes # 0.5 Eosinophils # 0.1 Basophils # 0.0 Nucleated Red Blood Cells # 0.0 Sodium Level 138 Potassium Level 4.2 Chloride Level 102 Carbon Dioxide Level 30 Anion Gap 10 # Blood Urea Nitrogen 6 L Creatinine 0.70 Glucose Level 92 Hemoglobin A1c 5.2 Calcium Level 8.8 Phosphorus Level 3.6 Magnesium Level 1.9 Total Bilirubin 1.2 Direct Bilirubin 0.00 Indirect Bilirubin 1.2 H Aspartate Amino Transf (AST/SGOT) 45 Alanine Aminotransferase (ALT/SGPT) 50 Alkaline Phosphatase 72 Total Protein 6.5 # Albumin 3.4 Globulin 3.10 Albumin/Globulin Ratio 1.09 Triglycerides Level 51 Cholesterol Level 86 L LDL Cholesterol, Calculated 42 HDL Cholesterol 34 Cholesterol/HDL Ratio 2.5 Thyroid Stimulating Hormone (TSH) 3.550 Lab Scanned Report BLOOD TRANSFUSION Medications Medications Current Medications Ondansetron HCl (Zofran Inj) 4 mg Q6H PRN IV NAUSEA AND/OR VOMITING Last administered on 06/23/17 09:09; Admin Dose 4 MG; Start 06/22/17 at 10:00 Acetaminophen (Tylenol Tab) 650 mg Q6H PRN PO PAIN LEVEL 1-3 OR FEVER; Start at 10:00 Acetaminophen (Tylenol Supp) 650 mg Q6H PRN [place] PAIN LEVEL 1-3 OR FEVER; Start 06/22/17 at 10:00 Docusate Sodium 100 mg 100 mg Q12H PRN PO CONSTIPATION; Start 06/22/17 at 10:00 Ferric Sodium Gluconate Complex/ Sodium Chloride (Ferrlecit/NS) 110 ml @ 110 mls/hr Q24H IVPB Last administered on 06/23/17 14:32; Admin Dose 110 MLS/HR; Start 06/22/17 at 15:00; Stop 06/26/17 at 15:59 Metoclopramide HCl (Reglan) 10 mg Q6 IV Last administered on 06/23/17 21:08; Admin Dose 10 MG; Start 06/23/17 at 10:00 Hydromorphone HCl 1 mg 1 mg Q4H PRN IV PAIN Last administered on 06/23/17 09: 52; Admin Dose 1 MG; Start 06/23/17 at 09:30 Sodium Chloride (NS) 1,000 ml @ 80 mls/hr [id number] IV Last administered on 06/23 12:33; Admin Dose 80 MLS/HR; Start 06/23/17 at 12:30 Pantoprazole (Protonix Iv) 40 mg BID IV Last administered on 06/23/17 21:07; Admin Dose 40 MG; Start 06/23/17 at 21:00 BERNADETTE HAWKINS MD Jun 23, 2017 23:24
[2017-06-24 00:33] LABS: HEMATOCRIT 27.6 % (35.0-45.0); HEMOGLOBIN 7.7 g/dL (11.7-15.5); MCH 20.2 pg (27.0-33.0); MCV 72.4 fL (80.0-100.0); RDW 24.5 % (11.0-15.0); RED BLOOD CELL COUNT 3.81 Million/uL (3.80-5.10)
[2017-06-24] MEDS: SOD CHLORIDE 0.9% 1,000 ML IV SCH ×2 (01:00→05:19)
[2017-06-24 02:06] VITALS: BP 133/66; RESP 18
[2017-06-24] MEDS: METOCLOPRAMIDE 10 MG INJ IV SCH ×3 (05:03→13:06)
[2017-06-24 06:00] LABS: HEMATOCRIT 31.3 % (37.0-47.0); HEMOGLOBIN 9.1 g/dl (12.0-16.0)
[2017-06-24] MEDS ORDERED: PANTOPRAZOLE 40 MG INJ IV SCH (06:00)
[2017-06-24] MEDS ORDERED: PANTOPRAZOLE (EC) 40 MG TAB PO SCH (06:00)
[2017-06-24] MEDS ORDERED: PANT40TA3 PO (07:33)
[2017-06-24 08:36] VITALS: BP 118/79; RESP 18
[2017-06-24] MEDS: PANTOPRAZOLE 40 MG INJ IV SCH (09:43)
--- NOTE | 2017-06-24 09:51 | DS ---
Date/Time of Note Date/Time of Note DATE: 06/24/17 TIME: 09:47 Discharge Summary Admission/Discharge Info Admit Date/Time Jun 22, 2017 at 07:14 Discharge Date/Time Discharge Diagnosis 1. Acute on chronic iron deficiency anemia requiring multiple blood tx. on iron replacement 2. Severe esophagitis with gastric ulcer. Status post endoscopy. On Protonix. 3. History of EtOH abuse. Patient Condition: Stable Consults ,GI .Heme Procedures 06/23/2017. EGD Postoperative Diagnosis: Grade I/IV esophageal varices with no stigmata. Severe distal esophagitis Small hiatal hernia Mild esophageal stricture dilated with scope 5 mm antral gastric ulceration, benign endoscopic appearance. Rule out H. pylori infection. Biopsies obtained Hx of Present Illness This is a 47-year-old female with a past medical history of EtOH abuse who is a sober for the past month 1 month, chronic anemia with multiple blood transfusion in the past, epistaxis, who presented to the emergency room with complaints of generalized weakness, and malaise for the past few weeks. Patient does not have PCP. Patient denied any hematuria, hematemesis, hematochezia, melena or excessive vaginal bleed. Her LMP was 5 months ago. Initial workup showed a low hemoglobin 4.3, hematocrit 17.5, sub-normal MCV, MCH , WBC 3.4. UA negative for any RBC loss. 4 units packed red blood cells was ordered from emergency room and was admitted for further evaluation. Hospital Course Patient was evaluated by hematology. She was transfused with 4 units PRBC with steady increase in H&H. She was started with severe iron deficiency and was treated with IV iron with recommendation of oral iron replacement upon discharge. Patient did not have any bleeding episodes. Stool OB was also negative. CT abdomen and pelvis was without any acute intra-abdominal pathologies. Liver function also was within acceptable range. Pelvic ultrasound showed small uncomplicated uterine fibroid with recommendation of repeat imaging in 6 months. Patient did not have any menorrhagia or metrorrhagia. However, patient continued to have intractable abdominal pain and vomiting requiring gastroenterology evaluation. Patient had undergone EGD on 06/23/2017 with the findings of mild esophageal stricture which was dilated with scope and 5 mm antral gastric ulceration and severe distal esophagitis. H pylori biopsies obtained. Recommendation was to continue patient on Protonix 40 mg twice a day. Patient was started on a diet which she was able to tolerate. There was no further vomiting or abdominal pain. Patient feels back to baseline. At this time, there is no further inpatient workup indicated and patient can be followed up outpatient with hematology. Case management was called for arranging primary care follow-up as she did not have any primary care provider as outpatient. Disposition: Patient will be discharged home today. She was instructed to follow-up with primary care and oil sprayer as outpatient. Patient verbalized discharge instructions. Condition at time of discharge is stable. Approximately 60 minutes was spent in coordinating the discharge on this patient. Case discussed with Dr. Interiano. Home Meds Active Scripts Pantoprazole* (Protonix*) 40 Mg Tablet.dr, 40 MG PO BID, #90 TAB Prov:IVIS LAKE NP 06/24/17 Ferrous Sulfate* (Ferrous Sulfate*) 325 Mg Tabec, 325 MG PO TID, #90 TAB Prov:IVIS LAKE V. CASKET COVERER 06/23/17 Docusate Sodium (Dok) 100 Mg Capsule, 100 MG PO DAILY, #60 CAP Prov:IVIS LAKE NP 06/23/17 Ondansetron (Ondansetron Odt) 4 Mg Tab.rapdis, 4 MG PO Q6H Y for NAUSEA AND/OR VOMITING, #10 TAB Prov:COLE PANIAGUA 06/22/17 Discontinued Reported Medications Vit/Fe Fumarate/Fa (Prenafirst Tablet) 1 Tab Tablet, PO DAILY 03/14/12 [Denies] No Conflict Check 04/23/10 Discontinued Scripts Hydrocodone/Acetaminophen ([place] 10-325 Tablet) 1 Each Tablet, 1 TAB PO Q6H Y for PAIN, #20 TAB Prov:COLE PANIAGUA 06/22/17 Follow-up Plan HOME CARE INSTRUCTIONS: Special Diet: Regular Diet FOLLOW UP/APPOINTMENTS Follow-up Plan 1.Follow up with primary care physician in 1 week-Needs Hematology outpatient follow-up If you don't have one please let someone know, we can give you resources that may help you pick one. You may also call your insurance company to assign one to you. Review your medication list with your nurse before leaving and if you need new prescriptions please let your nurse know. I may have made changes to your home medications or given you new prescriptions, please let your primary doctor know as well. Stay compliant with your medications and report any side effects to your PCP or pharmacist. Return to the ER if you have any concerns and cannot reach your doctors or call your insurance company, they usually have a nurse that can help you. 2. Call 911 or go to the nearest emergency room if experiencing loss of consciousness, dizziness, chest pain, shortness of breath, vomiting/abdominal pain, speech difficulties, motor weakness or any unusual symptoms. 3. Needs repeat pelvic ultrasound in 6 months. Primary Care Provider Care Physician No Primary Pending Labs Laboratory Tests Test 06/23/17 16:14 06/24/17 05:24 Hemoglobin 9.4g/dl (12.0-16.0) 9.1g/dl (12.0-16.0) Hematocrit 32.4% (37.0-47.0) 31.3% (37.0-47.0) IVIS LAKE NP Jun 24, 2017 09:51
--- NOTE | 2017-06-24 20:06 | CONS ---
Date/Time of Note Date/Time of Note DATE: 06/24/17 TIME: 10:06 vk le Consultation Date/Type/Reason Admit Date/Time Jun 22, 2017 at 07:14 Initial Consult Date 06/23/17 [facility] Referring Provider: IVIS LAKE NP Exam/Review of Systems Vital Signs Vitals Vital Signs Date Time Temp Pulse Resp B/P Pulse Ox O2 Delivery O2 Flow Rate FiO2 06/24/17 08:36 98.8 72 18 118/79 98 06/23/17 19:28 Room Air 06/23/17 18:56 5 Intake and Output 06/23/17 06/23/17 06/24/17 15:00 23:00 07:00 Intake Total 910 ml 1080 ml Balance 910 ml 1080 ml Results Result Diagram: 06/24/17 0524 06/23/17 0521 Results 24 hrs Laboratory Tests Test 06/24/17 05:24 Hemoglobin 9.1 L Hematocrit 31.3 L BERNADETTE HAWKINS MD Jun 24, 2017 20:06
[2017-06-24 21:59] LABS: ALBUMIN 3.6 g/dL (3.8-4.8)
[2017-06-29 13:49] LABS: HEMOGLOBIN A 98.1 % (>96.0); HEMOGLOBIN A2 (QUANT) 1.9 % (1.8-3.5); HEMOGLOBIN F <1.0 % (<2.0)
== END 2017-06-24 13:30 | disposition home or self-care (01) | DRG 812 ==
LOC: E/R 01:29 → MS2 07:14
PROVIDERS: ADMIT Family Medicine; ATTEND Family Medicine
PROC: 30233N1 Transfusion of Nonautologous Red Blood Cells into Peripheral Vein, Percutaneous Approach (ICD-10-PCS; principal; 2017-06-22)
PROC: 0DB68ZX Excision of Stomach, Via Natural or Artificial Opening Endoscopic, Diagnostic (ICD-10-PCS; 2017-06-23)
DX: D62 Acute posthemorrhagic anemia (principal); I85.00 Esophageal varices without bleeding; K22.2 Esophageal obstruction; K25.9 Gastric ulcer, unspecified as acute or chronic, without hemorrhage or perforation; K20.9 Esophagitis, unspecified; K21.9 Gastro-esophageal reflux disease without esophagitis; K44.9 Diaphragmatic hernia without obstruction or gangrene; E87.6 Hypokalemia; D50.0 Iron deficiency anemia secondary to blood loss (chronic); R10.84 Generalized abdominal pain; Z86.59 Personal history of other mental and behavioral disorders
CPT/HCPCS: 36415; 36430; 71010; 74176; 74177; 76830; 76856; 80053; 80061; 81001; 82105; 82270; 82306; 82378; 82607; 82668; 82728; 82746; 83010; 83020; 83036; 83540; 83615; 83690; 83735; 84100; 84155; 84165; 84443; 84560; 84703; 85014; 85018; 85025; 85045; 85651; 86301; 86304; 86703; 86850; 86900; 86901; 86920; 88305; 88312; 96374; 96375; C9113; J1170; J2250; J2270; J2405; J2765; J2916; J3010; J7030; J7040; P9016; Q9967